=== PATIENT | female | born 1995 | race Caucasian/White ===

== ENCOUNTER 2017-12-13 06:05 | Outpatient (CLI) | payer OTHER ==
--- NOTE | 2017-12-13 06:55 | Non Stress Test Report ---
Non Stress Test Datetime Report Generated by CPN: 12/13/2017 06:55 DEMOGRAPHIC Test Number: 1 EGA NST: 39.2 INDICATION Indication for Study: Ordered by Provider MONITORING Monitor Explained: Monitor Explained; Test Explained; Patient Verbalized Understanding Time on Monitor: 12/13/2017 06:24 Time off Monitor: 12/13/2017 06:46 NST Duration: 22 NST INTERVENTIONS NST Interventions: PO Hydration; Reposition Patient Physician Notified NST: Dr. Ochoa BABY A: [id number] BABY A Movement : Present Contraction Frequency : 3-4 FHR Baseline : 145 Accelerations : 15X15 Decelerations : None Variability : Moderate 6-25bpm NST Review: Meets Criteria for Reactive NST NST Review and Verified By : Young Perkins RN NST Results: Reactive NST REPORT Report Trigger: Send Report
[2017-12-13 07:07] LABS: APPEARANCE,URINE SLIGHTLY-CLOUDY; BILIRUBIN,URINE NEGATIVE (NEGATIVE); COLOR,URINE YELLOW; GLUCOSE, URINE NEGATIVE (NEGATIVE); KETONES,URINE NEGATIVE (NEGATIVE); LEUKOCYTE ESTERASE,URINE SMALL (NEGATIVE); NITRITE,URINE NEGATIVE (NEGATIVE); PROTEIN,URINE NEGATIVE (NEGATIVE); UROBILINOGEN,URINE NEGATIVE mg/dL (<2.0)
[2017-12-13 07:30] LABS: URINE AMPHETAMINES SCREEN NEGATIVE; URINE BARBITURATES SCREEN NEGATIVE; URINE BENZODIAZEPINES SCREEN NEGATIVE; URINE COCAINE SCREEN NEGATIVE; URINE MARIJUANA (THC) SCREEN NEGATIVE; URINE METHADONE SCREEN NEGATIVE; URINE PHENCYCLIDINE SCREEN NEGATIVE
== END 2017-12-13 07:55 | disposition home or self-care (01) ==
LOC: LC 06:05
PROVIDERS: ATTEND Obstetrics & Gynecology
PROC: 4A1HXCZ Monitoring of Products of Conception, Cardiac Rate, External Approach (ICD-10-PCS; principal; 2017-12-13)
DX: O47.1 False labor at or after 37 completed weeks of gestation (principal); Z3A.39 39 weeks gestation of pregnancy
CPT/HCPCS: 59025; 80307; 81005

== ENCOUNTER 2017-12-13 22:35 | Inpatient (IN) | payer OTHER ==
[2017-12-13 23:05] LABS: APPEARANCE,URINE CLOUDY; BILIRUBIN,URINE NEGATIVE (NEGATIVE); COLOR,URINE YELLOW; GLUCOSE, URINE NEGATIVE (NEGATIVE); KETONES,URINE NEGATIVE (NEGATIVE); LEUKOCYTE ESTERASE,URINE LARGE (NEGATIVE); NITRITE,URINE NEGATIVE (NEGATIVE); PROTEIN,URINE NEGATIVE (NEGATIVE); URINE SPECIFIC GRAVITY 1.018
[2017-12-13 23:24] LABS: URINE AMPHETAMINES SCREEN NEGATIVE; URINE BARBITURATES SCREEN NEGATIVE; URINE BENZODIAZEPINES SCREEN NEGATIVE; URINE COCAINE SCREEN NEGATIVE; URINE MARIJUANA (THC) SCREEN NEGATIVE; URINE METHADONE SCREEN NEGATIVE; URINE PHENCYCLIDINE SCREEN NEGATIVE
[2017-12-13] MEDS ORDERED: MISOPROSTOL 0.2 MG TABLET ONE (23:50)
[2017-12-13] MEDS ORDERED: OXYTOCIN/NORMAL SALINE 20 UNIT/1,000 ML RTUINJ ONE (23:50)
[2017-12-13] MEDS ORDERED: LIDOCAINE 1% INJ-PF (10 MG/ML) 30 ML SDV ONE (23:50)
[2017-12-14 00:16] LABS: ABSOLUTE BASOPHILS # (AUTO) 0.1 10^3/uL (0.0-0.2); ABSOLUTE EOSINOPHILS # (AUTO) 0.1 10^3/uL (0.0-0.6); ABSOLUTE LYMPHOCYTES (AUTO) 2.2 10^3/uL (0.5-4.7); ABSOLUTE MONOCYTES (AUTO) 0.8 10^3/uL (0.1-1.4); ABSOLUTE NEUT (AUTO) 7.5 10^3/uL (1.7-8.2); BASOPHILS % (AUTO) 0.6 % (0-2); EOSINOPHILS % (AUTO) 1.4 % (0-6); HEMATOCRIT 32.9 % (36.0-47.0); HEMOGLOBIN 11.2 g/dL (12.0-15.5); LYMPHOCYTES % (AUTO) 20.7 % (13-45); MEAN CORPUSCULAR HEMOGLOBIN 27.1 pg (27.0-33.4); MEAN CORPUSCULAR VOLUME 80 fl (80-97); MONOCYTES % (AUTO) 7.6 % (3-13); PLATELET COUNT 206 10^3/uL (150-450); RED BLOOD COUNT 4.14 10^6/uL (3.72-5.28); RED CELL DISTRIBUTION WIDTH 13.9 % (11.5-14.0); SEGMENTED NEUTROPHILS % (AUTO) 69.7 % (42-78); TOTAL CELLS COUNTED % (AUTO) 100 %; WHITE BLOOD COUNT 10.7 10^3/uL (4.0-10.5)
[2017-12-14] MEDS ORDERED: EPHEDRINE SULFATE INJ 50 MG/1 ML AMPULE ONE (01:02)
[2017-12-14] MEDS ORDERED: FENTANYL/BUPIVACAINE/NS/PF 300 MCG/150 ML RTUINJ EPI ONE (01:03)
[2017-12-14] MEDS ORDERED: BUPIVACAINE HCL 0.5 % INJ/PF 30 ML SDV ONE (01:04)
[2017-12-14] MEDS: RINGERS SOLUTION,LACTATED 1,000 ML IV PRN ×2 (05:18→05:19)
[2017-12-14] MEDS ORDERED: OXYTOCIN/NORMAL SALINE 20 UNIT/1,000 ML RTUINJ IV PRN ×2 (08:37→14:16)
--- NOTE | 2017-12-14 08:53 | Admission Physical ---
Datetime Report Generated by CPN: 12/14/2017 08:52 CURRENT ADMISSION Chief Complaint: Uterine Contractions; Suspected Ruptured Membranes Admit Impression : Term, Intrauterine ; Active Labor; Ruptured Membranes Admit Plan: Admit to Unit ALLERGIES Medication Allergies: No Medication Allergies: No Known Allergies (12/13/2017) Latex: No Latex Allergies OBSTETRICAL HISTORY EDC: 12/18/2017 00:00 : 1 Para: 0 Term: 0 : 0 SAB: 0 IAB: 0 Ectopic: 0 Livin Cesareans: 0 VBACs: 0 Multiple Births: 0 Gestational Diabetes: No Rh Sensitization: No Incompetent Cervix: No MELISSA: No Infertility: No ART Treatment: No Uterine Anomaly: No IUGR: No Hx Previous C/S: No Macrosomia: No Hx Loss/Stillborn: No PIH: No Hx : No Placenta Previa/Abruption: No Depression/PP Depression: No PTL/PROM: No Post Hemorrhage: No Current Procedures: Ultrasound Obstetrical History Comments: G1- Current SEE RECORDS Alcohol: No Marijuana : No Cocaine: No Other Illicit Drugs: No Cigarettes: Former Smoker. [id number] MEDICAL HISTORY Diabetes: No Blood Transfusion: No Pulmonary Disease (Asthma, TB): No Breast Disease: No Hypertension: No Mold Presser Surgery: No Heart Disease: No Hosp/Surgery: No Autoimmune Disorder: No Anesthetic Complications: No Kidney Disease: No Abnormal Pap Smear: No Neuro/Epilepsy: No Psychiatric Disorders: No Other Medical Diseases: No Hepatitis/Liver Disease: No Significant Family History: No Varicosities/Phlebitis: No Trauma/Violence : No Thyroid Dysfunction: No Medical History Comments: Anemia (Iron) INFECTIOUS HISTORY Gonorrhea: No Genital Herpes: No Chlamydia: No Tuberculosis: No Syphilis: No Hepatitis: No HIV/AIDS Exposure: No Rash or Viral Illness: No HPV: No PHYSICAL EXAM General: Normal HEENT: Normal Neurologic: Normal Thyroid: Normal Heart: Normal Lungs: Normal Breast: Normal Back: Normal Abdomen: Normal Genitourinary Exam: Normal Extremities: Normal DTRs: Normal Pelvic Type: Adequate Vital Signs: Reviewed; Within Normal Limits VAGINAL EXAM Dilatation: 6 Effacement: 90 Station: -1 Contraction Comments: q3-4 min MEMBRANES Pooling: Positive Membranes: Ruptured Amniotic Fluid Color: Clear FETUS A EGA: 39.3 Monitoring: External US FHR- Baseline: 130 Variability: Moderate 6-25bpm Accelerations: 15X15 Decelerations: None Admit Comment: Pt presented overnight with SROM and contractions. Pt now has an epidural and is comfortable. Will start pitocin to augment spacing contractions. Attending MD is Dr Vaughn and aware of pt status. PLANS FOR LABOR AND DELIVERY Labor and Delivery: None Pain Management: Epidural Feeding Preference: Breast Benefit of Breast Feed Discussed: Yes Circumcision: Yes INFORMED CONSENT Assignment: Geni Vaughn MD Signature: with User ID: [email or web address] : with User ID: [email or web address]
--- NOTE | 2017-12-14 11:15 | L&D Progress Notes ---
PROGRESS NOTES Datetime Report Generated by CPN: 12/14/2017 11:15 PROGRESS NOTE Impression: Normal Progression of Labor; Reassuring Heart Rate Procedures: Sterile Vag Exam Procedures- Other: AROM of forbag Plan: Continue Present Management; Augmentation; Anticipate Vaginal Delivery Plan Other: Position changes encourged Vital Signs : Reviewed; Within Normal Limits Comment: Doing well, remains comfortable, Pitocin infusing to augment labor, Plans to labor down until strong urge to push, Anticipate VAGINAL EXAM Dilatation: 8-9 Dilatation: 6 Effacement: 90 Effacement: 90 Station: 0 Station: -1 Contractions: q2 Contractions: q3-4 min MEMBRANES Pooling: Positive Membranes: Ruptured Membranes: Ruptured Amniotic Fluid Color: Clear Amniotic Fluid Color: Clear FETUS A FHR - Baseline: 130 Monitoring: External US Variability: Moderate 6-25bpm Accelerations: 15X15 Decelerations: None FHR Category: Category I SIGNATURE SIGNATURE: [id number];[id number];[id number] SIGNATURE: [id number];[id number] SIGNATURE: [id number] Assignment: Geni Vaughn MD Signature: with User ID: [email or web address] : with User ID: [email or web address]
[2017-12-14] MEDS ORDERED: ZOLPIDEM TARTRATE 5 MG TABLET PO PRN ×2 (14:16→20:43)
[2017-12-14] MEDS ORDERED: MEASLES,MUMPS&RUBELLA VACC/PF 0.5 ML VIAL SUBCUT PRN ×2 (14:16→20:43)
[2017-12-14] MEDS ORDERED: BENZOCAINE/MENTHOL AEROSOL SPRAY 56 ML TOP PRN ×2 (14:16→20:43)
[2017-12-14] MEDS ORDERED: ACETAMINOPHEN WITH CODEINE #3 TABLET PO PRN ×4 (14:16→20:43)
[2017-12-14] MEDS ORDERED: DIPH/PERTUSS(ACELL)/TETANUS VAC/PF 0.5 ML SYR (>=10YO) IM PRN ×2 (14:16→20:43)
[2017-12-14] MEDS ORDERED: MISOPROSTOL 0.2 MG TABLET PO PRN (14:16)
[2017-12-14] MEDS ORDERED: DIBUCAINE 1% OINTMENT 28 GM TP PRN ×2 (14:16→20:43)
--- NOTE | 2017-12-14 15:24 | Warning Signs in Babies ---
VOD Warning Signs Datetime Report Generated by [facility]: 12/14/2017 15:23 VOD#[id number] -Warning Signs in Babies: Viewed with Parent(s)/Family (12/13/2017 06:07:Mike Chavis RN)
[2017-12-14] MEDS ORDERED: CLINDAMYCIN 900 MG/D5W RTU 900 MG/50 ML RTUPB IV SCH (17:00)
--- NOTE | 2017-12-14 17:18 | Delivery Summary ---
Del Sum A-C Datetime Report Generated by CPN: 12/14/2017 17:18 DELIVERY PERSONNEL DELIVERY PERSONNEL: [id number] Delivery Doctor:: Magda Thompson CNM Labor and Delivery Nurse:: Mike Chavis RN Nursery Nurse:: Kaley Puente RN Nursery Nurse:: Ansley Edmondson RN Student Observers:: SN Jaleel Toolsmith/RENE: ST Jonathan Additional Personnel: : RUPAL Johnson MATERNAL INFORMATION Delivery Anesthesia: Epidural Medications After Delivery: Pitocin Drip 20 Units/1000ml NSS Meds After Delivery Comment: Cytotec 200mcg SL Maternal Complications: None Provider Comments: of viable baby boy, DRAKE position, umbilical cord noted to be wrapped around his ankles at the delivery. Spontaneously crying and placed on pts abdoman. Cord clamped after one minute. Cord blood then obtained. Placenta S/C/I. 200 mcg SL Cytotec given for uterine atony, IV Pitocin infusing. Pt tolerated 2nd degree lacteration repair well. Mother and baby skin to skin, pt plans to breastfeed. Attending MD is Dr Vaughn. LABOR SUMMARY EDC: 12/18/2017 00:00 No. Babies in Womb: 1 Attempted: No Labor Anesthesia: Epidural LABOR INFORMATION Reason for Induction: Not Applicable Complete Dilatation: 12/14/2017 12:00 Oxytocin: Augmentation Group B Beta Strep: negative Reason Steroids Not Administered: Not Applicable MEMBRANES Membranes Rupture Method: Spontaneous Rupture of Membranes: 12/13/2017 22:00 Length of Rupture (hr): 15.78 Amniotic Fluid Color: Clear Amniotic Fluid Amount: Small Amniotic Fluid Odor: Normal STAGES OF LABOR Stage 2 hr: 1 Stage 2 min: 47 Stage 3 hr: 0 Stage 3 min: 5 VAGINAL DELIVERY Episiotomy: None Laceration #1: Perineal Laceration Extension #1: Second Degree Laceration Repair: Yes Laceration Repair Note: Second degree perineal laceration repaired using 3.0 Vicryl. 1% Lidocaine used in addition to the epidural for pts comfort. Sponge Count Correct: N/A Sharps Count Correct: Yes CSECTION DELIVERY Primary Indication: N/A Secondary Indication: N/A CSection Incidence: N/A Labor: N/A Elective: N/A CSection Incision: N/A BABY A INFORMATION Delivery Date/Time: 12/14/2017 13:47 Method of Delivery: Vaginal Born in Route : No : N/A Forceps: N/A Vacuum Extraction: N/A Shoulder Dystocia : No PRESENTATION/POSITION BABY A Presentation: Cephalic Cephalic Presentation: Vertex Vertex Position: Left Occipital Anterior Breech Presentation: N/A PLACENTA INFORMATION BABY A Placenta Delivery Time : 12/14/2017 13:52 Placenta Method of Delivery: Expressed Placenta Status: Delivered SCORES BABY A Heart Rate 1 min: >100 bpm Resp Effort 1 min: Slow, Irregular Reflex Irritability 1 min: Cough or Sneeze or Pulls Away Muscle Tone 1 min: Active Motion Color 1 min: Body [place], Extremities Blue Resuscitation Effort 1 min: Tactile Stimulation SCORE 1 MIN: 8 Heart Rate 5 min: >100 bpm Resp Effort 5 min: Good Cry Reflex Irritability 5 min: Cough or Sneeze or Pulls Away Muscle Tone 5 min: Active Motion Color 5 min: Body [place], Extremities Blue Resuscitation Effort 5 min: Tactile Stimulation SCORE 5 MIN: 9 INFANT INFORMATION BABY A Gestational Age at Delivery: 39.3 Gestational Status: Full Term- 39- 40.6 Weeks Infant Outcome : Liveborn Infant Condition : Stable Infant Sex: Male IDENTIFICATION BABY A Infant Verification Date/Time: 12/14/2017 14:18 ID Band Number: [id number] Mother's Name Verified: Yes Infant RN Verifying Infant: Joe Chavis, RN Additional Verifying Personnel: ELindsay Strange, [facility] WEIGHT/LENGTH BABY A Birthweight (gm): 3640 Weight (lb): 8 Infant Weight (oz): 0 Infant Length (in): 20.50 Length (cm): 52.07 CORD INFORMATION BABY A No. Cord Vessels: 3 Nuchal Cord : N/A Cord Blood Taken: Yes-For Storage (Mom's Blood type +) Suction: Mouth ASSESSMENT BABY A Complications: None Physical Findings at Delivery: Within Normal Limits Infant Respirations: Grunting Skin to Skin: Yes Skin to Skin Time (min): 60 Commercial Announcer/ALS Called : No Infant Care By: Marisa Brooks RN and Karley Puente RN Transferred To: Remains with Mother BABY B INFORMATION : N/A SIGNATURES Assignment: Geni Vaughn MD Signature: with User ID: [email or web address] : with User ID: [email or web address]
[2017-12-14] MEDS ORDERED: FERROUS SULFATE 325 MG TABLET PO SCH (18:00)
[2017-12-14] MEDS ORDERED: DOCUSATE SODIUM 100 MG CAPSULE PO SCH (18:00)
[2017-12-14] MEDS ORDERED: NA PHOS,M-B/NA PHOS,DI-BA (ADULT) 133 ML ENEMA PR PRN (20:43)
[2017-12-14] MEDS ORDERED: PSEUDOEPHEDRINE HCL 30 MG TABLET PO PRN (20:43)
[2017-12-14] MEDS ORDERED: PROMETHAZINE HCL INJ 25 MG/1 ML VIAL IV PRN (20:43)
[2017-12-14] MEDS ORDERED: PROMETHAZINE HCL 25 MG TABLET PO PRN (20:43)
[2017-12-14] MEDS ORDERED: OXYTOCIN/NORMAL SALINE 1,000 ML IV PRN (20:43)
[2017-12-14] MEDS ORDERED: DIPHENHYDRAMINE HCL 25 MG CAPSULE PO PRN (20:43)
[2017-12-14] MEDS ORDERED: ACETAMINOPHEN 650 MG SUPP.RECT PR PRN (20:43)
[2017-12-14] MEDS ORDERED: MAGNESIUM HYDROXIDE SUSP 30 ML UDCUP PO PRN (20:43)
[2017-12-14] MEDS ORDERED: GLYCERIN/WITCH HAZEL LEAF 1 EACH MED..PAD TP PRN (20:43)
[2017-12-14] MEDS ORDERED: ACETAMINOPHEN 325 MG TABLET PO PRN (20:43)
[2017-12-14] MEDS ORDERED: PROMETHAZINE HCL 25 MG SUPP.RECT PR PRN (20:43)
[2017-12-14] MEDS: IBUPROFEN 800 MG TABLET PO SCH (21:56)
[2017-12-14] MEDS: FAMOTIDINE 20 MG TABLET PO SCH (21:56)
[2017-12-14] MEDS ORDERED: GENTAMICIN SULFATE INJ 80 MG/2 ML VIAL IM SCH (22:00)
[2017-12-14] MEDS ORDERED: GENTAMICIN SULFATE 130 MG in DEXTROSE 5%-WATER 100 ML IV ONE (22:00)
[2017-12-14] MEDS ORDERED: IBUPROFEN 800 MG TABLET PO SCH (22:00)
[2017-12-14] MEDS ORDERED: GENTAMICIN SULFATE INJ 80 MG/2 ML VIAL IV SCH (22:00)
[2017-12-15] MEDS ORDERED: CLINDAMYCIN 900 MG/D5W RTU 900 MG/50 ML RTUPB IV ONE (02:00)
[2017-12-15] MEDS: IBUPROFEN 800 MG TABLET PO SCH ×3 (05:30→21:47)
[2017-12-15 06:10] LABS: HEMATOCRIT 25.4 % (36.0-47.0); MEAN CORPUSCULAR HEMOGLOBIN 26.3 pg (27.0-33.4); MEAN CORPUSCULAR HGB CONC 32.8 g/dL (32.0-36.0); MEAN CORPUSCULAR VOLUME 80 fl (80-97); PLATELET COUNT 172 10^3/uL (150-450); RED BLOOD COUNT 3.17 10^6/uL (3.72-5.28); RED CELL DISTRIBUTION WIDTH 13.5 % (11.5-14.0); WHITE BLOOD COUNT 12.7 10^3/uL (4.0-10.5)
[2017-12-15 06:11] LABS: HEMOGLOBIN 8.3 g/dL (12.0-15.5)
[2017-12-15] MEDS: FAMOTIDINE 20 MG TABLET PO SCH ×2 (09:03→21:47)
[2017-12-15] MEDS: FERROUS SULFATE 325 MG TABLET PO SCH ×2 (09:03→17:17)
[2017-12-15] MEDS: SENNOSIDES/DOCUSATE 8.6-50 MG 1 EACH TABLET PO SCH (09:03)
[2017-12-15] MEDS: DOCUSATE SODIUM 100 MG CAPSULE PO SCH ×2 (09:04→17:17)
[2017-12-15] MEDS: PRENATAL VITAMIN W DHA CAPSULE PO SCH (09:04)
[2017-12-15] MEDS ORDERED: SENNOSIDES/DOCUSATE 8.6-50 MG 1 EACH TABLET PO SCH (10:00)
[2017-12-15] MEDS ORDERED: PRENATAL VITAMIN W DHA CAPSULE PO SCH (10:00)
--- NOTE | 2017-12-15 10:06 | PDOC PROGRESS REPORT ---
Subjective-OB Progress Note for:: 12/15/17 Subjective: PP day #1, doing well, no complaints, did have a temp after delivery, Gent and Clinda given, pt denies fever today, B+, rubella Non-Immune, Physical Exam (OB) Vital Signs: Temp Pulse Resp BP Pulse Ox 97.7 F 74 18 96/48 L 100 12/15/17 07:57 12/15/17 07:57 12/15/17 07:57 12/15/17 07:57 12/15/17 07:57 Intake & Output 12/14/17 12/15/17 12/16/17 06:59 06:59 06:59 Intake Total 2 1403.25 Balance 2 1403.25 Weight 70.5 kg - General General Appearance: Appears well, Alert In distress: None - PIH/Pre-Eclampsia Headache: Absent Epigastric Pain: No Visual Changes: No - Lochia Lochia Amount: Scant < 10 ml Lochia Color: Rubra/Red - Abdomen Description: Soft Hernia Present: No Fundal Description: Firm Fundal Height: u/u - u/2 - HEENT Eyes: Normal Ears: Normal Nasal: Normal - Respiratory Respiratory Status: No respiratory distress - Abdominal Inspection: Normal Distension: No distension Tenderness: Nontender - Genitourinary Genitourinary Note: voiding - Extremities Upper extremity: Normal inspection Lower extremities: Normal inspection - Neurological Cognition: Normal Orientation: AAOx4 - Psychological Associated symptoms: Normal affect, Normal mood - Skin Skin Temperature: Warm Skin Moisture: Dry Objective-Diagnostic Laboratory: 12/15/17 06:00 12/15/17 06:00 WBC 12.7 H RBC 3.17 L Hgb 8.3 L D Hct 25.4 L MCV 80 MCH 26.3 L MCHC 32.8 RDW 13.5 Plt Count 172 Assessment and Plan(PN) - Assessment and Plan (1) (normal spontaneous vaginal delivery) Is this a current diagnosis for this admission?: Yes (2) Chorioamnionitis Qualifiers: Fetus number: single or unspecified fetus Is this a current diagnosis for this admission?: Yes (3) Anemia, Is this a current diagnosis for this admission?: Yes - Time Spent with Patient Time with patient: Less than 15 minutes Medications reviewed and adjusted accordingly: Yes - Disposition Anticipated Discharge: Home Within: within 48 hours
[2017-12-16] MEDS: IBUPROFEN 800 MG TABLET PO SCH ×2 (06:03→13:14)
[2017-12-16 08:05] VITALS: BP 116/61
--- NOTE | 2017-12-16 10:15 | PDOC DISCHARGE SUMMARY ---
Final Diagnosis Discharge Date: 12/16/17 - day#2, doing well, Afebrile since just after delivery. B+, Rubella Non Immune - Final Diagnosis (1) (normal spontaneous vaginal delivery) Is this a current diagnosis for this admission?: Yes (2) Chorioamnionitis Is this a current diagnosis for this admission?: Yes (3) Anemia, Is this a current diagnosis for this admission?: Yes Discharge Data - Discharge Medication Prescriptions: Ibuprofen [Motrin 800 mg Tablet] 800 mg PO Q8 #60 tablet Home Medications: Ferrous Sulfate [Iron] 325 mg PO DAILY 12/13/17 Prenat 115/Iron Fum/Folic/Dss [ 19 Tablet] 1 tab PO DAILY 12/13/17 Ibuprofen [Motrin 800 mg Tablet] 800 mg PO Q8 #60 tablet 12/16/17 Reason(s) for Admission: Induction of Labor, Medical Complications - chorioamnionitis Procedures: Ultrasound Intrapartum Procedure(s): Spontaneous Vaginal Delivery Complication(s): Laceration-Perineal, Pelvic Infection Laceration-Degree: 2nd - Diagnosis Test Laboratory: Temp Pulse Resp BP Pulse Ox 98.5 F 62 15 116/61 99 12/16/17 07:28 12/16/17 07:28 12/16/17 07:28 12/16/17 07:28 12/16/17 07:28 12/13/17 12/14/17 12/15/17 22:52 00:02 06:00 RBC 4.14 3.17 L Hgb 11.2 L 8.3 L D Hct 32.9 L 25.4 L Urine Opiates Screen NEGATIVE - Discharge information/Instructions Discharge Activity: Activity As Tolerated, No Lifting Over 10 Pounds, Pelvic Rest Discharge Diet: As Tolerated, Regular Disposition: HOME, SELF-CARE Follow [facility] with: [facility] in: 4, Weeks
[2017-12-16] MEDS: SENNOSIDES/DOCUSATE 8.6-50 MG 1 EACH TABLET PO SCH (10:17)
[2017-12-16] MEDS: DOCUSATE SODIUM 100 MG CAPSULE PO SCH (10:17)
[2017-12-16] MEDS: PRENATAL VITAMIN W DHA CAPSULE PO SCH (10:17)
[2017-12-16] MEDS: FAMOTIDINE 20 MG TABLET PO SCH (10:17)
[2017-12-16] MEDS: FERROUS SULFATE 325 MG TABLET PO SCH (10:17)
== END 2017-12-16 15:15 | disposition home or self-care (01) | DRG 805 ==
LOC: LC 22:35 → LR 23:45 → 2S 12-14 16:40
PROVIDERS: ADMIT Obstetrics & Gynecology Gynecology; ATTEND Obstetrics & Gynecology Gynecology
PROC: 10E0XZZ Delivery of Products of Conception, External Approach (ICD-10-PCS; principal; 2017-12-14)
PROC: 0KQM0ZZ Repair Perineum Muscle, Open Approach (ICD-10-PCS; 2017-12-14)
PROC: 4A1HXCZ Monitoring of Products of Conception, Cardiac Rate, External Approach (ICD-10-PCS; 2017-12-14)
PROC: 3E0234Z Introduction of Serum, Toxoid and Vaccine into Muscle, Percutaneous Approach (ICD-10-PCS; 2017-12-16)
DX: O99.02 Anemia complicating childbirth (principal); O41.1230 Chorioamnionitis, third trimester, not applicable or unspecified; Z37.0 Single live birth; O62.2 Other uterine inertia; O70.1 Second degree perineal laceration during delivery; O69.82X0 Labor and delivery complicated by other cord entanglement, without compression, not applicable or unspecified; Z3A.39 39 weeks gestation of pregnancy; Z87.891 Personal history of nicotine dependence; Z23 Encounter for immunization
CPT/HCPCS: 36415; 80307; 81005; 84112; 85025; 85027; 86592; 86850; 86900; 86901; 90707; J1580; J2590; J3010; J3490; Q0114